=== PATIENT | male | born 1980 | race Caucasian/White ===

== ENCOUNTER 2024-02-12 10:07 | Day surgery (SDC) | payer OTHER ==
[~2024-02-12] VITALS: Ht 177.8 cm; Wt 123.8 kg
[2024-02-12] MEDS ORDERED: LR 1,000 ML IV SCH ×2 (10:45→14:40)
[2024-02-12] MEDS ORDERED: fentaNYL 250 MCG/5 ML INJECTION As Ordered ONE (11:20)
[2024-02-12] MEDS ORDERED: ONDANSETRON 4MG 2ML VIAL As Ordered ONE (11:20)
[2024-02-12] MEDS ORDERED: LIDOCAINE 2% 100MG/5ML SDV (FOR ANES.) As Ordered ONE (11:20)
[2024-02-12] MEDS ORDERED: MIDAZOLAM INJ 2MG/2ML VIAL As Ordered ONE (11:20)
[2024-02-12] MEDS ORDERED: ROCURONIUM BROMIDE 50MG/5ML VIAL As Ordered ONE (11:20)
[2024-02-12] MEDS ORDERED: propofoL 200 MG/20 ML VIAL As Ordered ONE (11:20)
[2024-02-12] MEDS ORDERED: dexmedeTOMIDine (4MCG/ML)200MCG/50ML BTL (PRECEDEX) As Ordered ONE (11:24)
[2024-02-12] MEDS: CLINDAMYCIN 900 MG in IV 1 EA IV ONE (12:44)
[2024-02-12] MEDS ORDERED: ePHEDrine SULFATE 25 MG/5 ML(5MG/ML) SYRINGE As Ordered ONE (13:02)
[2024-02-12] MEDS: LIDOCAINE 2% W/ EPINEPHRINE 1.7 ML DENTAL INJ As Ordered ONE (13:02)
[2024-02-12] MEDS: CHLORHEXIDINE GLUCONATE 0.12 % 15ML UDC (PERIDEX ORAL RINSE) As Ordered ONE (13:02)
[2024-02-12] MEDS: MEPIVACAINE HCL 3 % 1.7 ML DENTAL CARTRIDGE (CARBOCAINE) As Ordered ONE (13:03)
[2024-02-12] MEDS ORDERED: PHENYLephrine 500MCG 5ML (100MCG/ML) SYRINGE As Ordered ONE (13:14)
[2024-02-12] MEDS ORDERED: ACETAMINOPHEN 1000MG/100ML IV BAG As Ordered ONE (13:17)
[2024-02-12] MEDS ORDERED: SUGAMMADEX SODIUM 500 MG/5 ML VIAL (BRIDION) As Ordered ONE (13:18)
[2024-02-12] MEDS ORDERED: KETOROLAC 60MG 2ML VIAL As Ordered ONE (13:18)
[2024-02-12] MEDS ORDERED: METOCLOPRAMIDE INJ 10MG/2ML VIAL IV PRN (14:40)
[2024-02-12] MEDS ORDERED: HYDROMORPHONE HCL 0.5 MG/ 0.5 ML SYRINGE IV PRN (14:40)
[2024-02-12] MEDS ORDERED: oxyCODONE 5MG TAB PO PRN (14:40)
[2024-02-12] MEDS ORDERED: fentaNYL 100 MCG/2 ML INJECTION IV PRN (14:40)
[2024-02-12] MEDS ORDERED: ONDANSETRON 4MG 2ML VIAL IV PRN (14:40)
[2024-02-12 15:41] VITALS: BP 128/65; TEMP 97.5; O2SAT 96
== END 2024-02-12 15:50 | disposition home or self-care (01) ==
LOC: M SDC 10:07
PROVIDERS: ATTEND Dentist
DX: K02.9 Dental caries, unspecified (principal); K21.9 Gastro-esophageal reflux disease without esophagitis; R06.83 Snoring; Z88.0 Allergy status to penicillin; Z87.891 Personal history of nicotine dependence; E66.9 Obesity, unspecified
CPT/HCPCS: 41899; 88300; C9290; J0131; J0670; J0737; J1100; J1885; J2250; J2371; J2405; J3010